=== PATIENT | female | born 1990 | race Caucasian/White ===

== ENCOUNTER → 2019-09-24 | Outpatient (CLI) | payer OTHER, SELFPAY | END | disposition home or self-care (01) | DX: J06.9 Acute upper respiratory infection, unspecified (principal) | CPT/HCPCS: 87635; G2023; U0003 ==

== ENCOUNTER → 2019-10-29 09:35 | Outpatient (CLI) | payer OTHER, SELFPAY | DX: Z11.59 Encounter for screening for other viral diseases (principal) | CPT/HCPCS: 87635; G2023; U0003 ==

== ENCOUNTER → 2019-11-16 17:46 | Outpatient (CLI) | payer OTHER, SELFPAY | DX: Z01.818 Encounter for other preprocedural examination (principal) | CPT/HCPCS: 87635; 94799; U0003 ==